=== PATIENT | male | born 1970 | race Caucasian/White ===

== ENCOUNTER 2017-01-26 02:46 | Observation (INO) | payer OTHER ==
[~2017-01-26] VITALS: Ht 172.7 cm; Wt 122.5 kg
--- NOTE | 2017-01-26 14:04 | Operative Report ---
Operative/Inv Procedure Report Surgery Date: 01/26/17 Name of Procedure: Laparoscopic hiatal hernia repair with mesh and Marva fundoplication Pre-Operative Diagnosis: Hiatal hernia with GERD Post-Operative Diagnosis: Same Estimated Blood Loss: scant Surgeon/Senior [employer] Systems Programmer: SHARON BOYCE,SKY Kat/Lori PIERCE Anesthesia: general endotracheal tube Implants: acell mesh Operative/Procedure Note Note: After consent is brought to the operating room and laid supine. Gen. anesthesia was obtained and placed in lithotomy position then his abdomen was prepped and draped. The skin in the epigastric region was after local anesthesia. Transverse incision made sharply. We came down the fascia and grasped the Ginette 's. Fasciotomies crated sharply and stay sutures placed. A blunt Moreno port was placed. Pneumoperitoneum achieved. A 5 mm port was placed in the right upper quadrant and extracted replaced with a Marisa retractor. Liver edge was lifted up and secured to the bed. 3, 5 mm ports are placed in the epigastrium and right upper quadrant after local anesthesia instilled and under direct vision the camera. He's placed in reverse Trendelenburg. The hiatus was identified. There was a large amount of fundus and omentum in the sac. Was retracted inferiorly. Began or dissection anterior and took down the peritoneum near the crura. We care dissection down to the right side than left side with Sonicision device. The visualization was quite difficult due to his obesity and intraperitoneal fat. Eventually we could circumferentially dissect the crura at the level of the sac. An umbilical tape was then placed posteriorly and tied to itself and aided in retraction. At this point we circumferentially mobilized the esophagus into the mediastinum using the Sonicision device. Care was taken to identify and preserve the vagus nerves. Once the GE junction was well below the diaphragm we excised the hernia sac with the Sonicision device to aid in better identification of the GE junction. We had at least 3-4 cm of intra- abdominal esophagus and at this point concluded that portion of the operation. Next the short gastrics were taken down with Sonicision device. At this point the GE junction and fundus were freely mobile. The diaphragmatic crura were then closed with 4 interrupted 0 Nurolon sutures. A 3 or 60 fundoplication was then created by passing the fundus posteriorly and performing a shoeshine maneuver. The fundus was then sutured to itself anteriorly with an interrupted 2-0 Vicryl. 2 more sutures were placed inferior to this first one while incorporating the anterior portion of the esophagus to keep it centered and anchored. Next a piece of biologic mesh was placed into the cavity. His cut into a horseshoe shape and placed posterior to the fundoplication along the diaphragm. Once were happy the placement of mesh we extracted the sac and then lowered liver edge. The Marisa was extracted and the ports were delivered. The fascia was closed 0 Vicryl suture. Skin incisions closed with 4-0 Vicryl. Steri-Strips and sterile dressing applied. Sponge and needle counts are correct CC: GEMINI BOYCE,BUCK
--- NOTE | 2017-01-26 14:24 | Admission Core Measures ---
Admission Meds I reviewed the following Meds: Current Medications Sig/David Start time Last Medication Dose Stop Time Status Admin Cefazolin Sodium 2,000 MG ONCE 01/26 0000 NR (Kefzol-Ancef Inj) 01/26 4979 Acute Coronary Syndrome Inclusion Criteria ACS Diagnosis No Inpatient Core Measures LDL Reminder: If No, please order W/I first 24hr of stay Congestive Heart Failure Inclusion Criteria CHF Diagnosis No Cerebrovascular accident Inclusion Criteria CVA/TIA Diagnosis No Inpatient Core Measures Bedside Swallow Eval Reminder: If BSE failed, place ST order Antithrombotic Reminder: Order Antithrombotic Medication by end of day 2 Antithrombotic Reminder: Document Reason Antithrombotic Not ordered by end of day 2 AFIB/Flutter Reminder: If Present, add to problem list AFIB/Flutter Reminder: Order Anticoag Medication for pts with AFIB/Flutter Atherosclerosis Reminder: If Present, add to problem list LDL Reminder: If No, please order W/I first 24hr of stay PT Order Reminder: If No, please order Venous thromboembolism Inpatient Core Measures VTE Risk Factors: [facility] prophylaxis d/t No contraindications No VTE Pharm Prophylaxis d/t No contraindications Inclusion Criteria - Per Current guidelines, there needs to be overlap - treatment for the first 5 days of Warfarin therapy. - Parenteral Anticoagulation (IV or SC) needs to be - given along with Warfarin therapy. VTE Diagnosis No VTE Type NONE VTE Confirmed by (Test) NONE Problem List As ranked by this Provider includes Assessment & Plan 1. Hiatal hernia
--- NOTE | 2017-01-26 15:37 | Patient Discharge Instructions ---
Discharge Instructions General Discharge Information You were seen/treated for: Hiatal hernia with GERD You had these procedures: Surgery Date: 01/26/17 Name of Procedure: Laparoscopic hiatal hernia repair with mesh and Marva fundoplication Watch for these problems: FEVER>101.3, INCREASED PAIN, REDNESS/SWELLING/DRAINAGE, DIZZINESS, SHORTNESS OF BREATH, CHEST PAINS No bath, but you may shower: Yes Other wound care: OK TO REMOVE BANDAIDS. LEAVE WHITE STERI STRIPS IN PLACE. KEEP INCISIONS CLEAN & DRY. Diet Continue normal diet: No Recommended Diet: FUNDOPLICATION DIET Activity Full Activity/No Limits: No Activity Self Limited: Yes Pounds, do NOT lift more than: 10 Other activity limits: WALK FREQUENTLY Acute Coronary Syndrome Inclusion Criteria At DC or during hospital stay patient has or had the following: ACS DIAGNOSIS No Discharge Core Measures Meds if any: Prescribed or Continued at Discharge Meds if any: NOT Prescribed or Continued at Discharge Congestive Heart Failure Inclusion Criteria At DC or during hospital stay patient has or had the following: CHF DIAGNOSIS No Discharge Core Measures Meds if any: Prescribed or Continued at Discharge Meds if any: NOT Prescribed or Continued at Discharge Cerebrovascular accident Inclusion Criteria At DC or during hospital stay patient has or had the following: CVA/TIA Diagnosis No Discharge Core Measures Meds if any: Prescribed or Continued at Discharge Meds if any: NOT Prescribed or Continued at Discharge Venous thromboembolism Inclusion Criteria VTE Diagnosis No VTE Type NONE VTE Confirmed by (Test) NONE Discharge Core Measures - Per Current guidelines, there needs to be overlap - treatment for the first 5 days of Warfarin therapy. - If discharged on Warfarin prior to 5 days of - overlap therapy, the patient will need to be - assessed for post discharge needs including - *Post discharge parental anticoagulation - *Warfarin and/or parental anticoagulation education - *Follow up date to check INR post discharge At least 5 days overlap therapy as Inpatient No Meds if any: Prescribed or Continued at Discharge Note: Overlap Therapy is Warfarin and Anticoagulant Meds if any: NOT Prescribed or Continued at Discharge
[2017-01-26] MEDS ORDERED: PERCOCET 5-3251 EACH PO (15:39)
--- NOTE | 2017-01-26 16:29 | NUR ---
PT ARRIVED TO FLOOR AT THIS TIME, ALERT ORIENTED X 3 ON RA, VSS REPORTS RIGHT SHOULDER GAS PAIN, DENIES PAIN OTHERWISE. HYPOACTIVE BS TO LUQ, OTHERWISE ABSENT, LSCTA, SKIN INTACT, 5 BANDAIDS TO ABD CD+I, ICE CHIPS AND WATER GIVEN, IVF INFUSING ORDERED, FIANCE AT BEDSIDE, C/O SMALL AMT NAUSEA, ZOFRAN GIVEN, ORIENTED TO ROOM AND USE OF CALL AVENDAÑO WILL MONITOR
[2017-01-26 16:33] VITALS: BP 160/80
--- NOTE | 2017-01-26 16:48 | PN- General Surgery ---
Subjective Subjective: Patient received on general surgical floor s/p laparoscopic hiatal hernia repair. He is having some post operative nausea but it has responded to iv zofran. He denies chest tightness and difficulty breathing. He denies nausea. He has camarena catheter in place that is set to be dc'd. He has yet to ambulate post op. Objective Vital Signs and I&Os Vital Signs Date Time Temp Pulse Resp B/P B/P Pulse O2 O2 Flow FiO2 Mean Ox Delivery Rate 01/26 1633 97.7 93 16 160/80 94 Room Air Physical Exam: General: Alert and oriented x3, no acute distress Cardiac: RRR, s1s2 Pulm: CTA bilaterally Abd: Non-tender, softly distended. Surgical incision/dressing clean dry and intact, no bowel sounds auscultated on exam. Extremities: Moves all extremities, distal sensation intact. Motor intact. Skin warm and well perfused. Bilateral calves soft and non-tender Assessment/Plan Assessment/Plan This is a 47 year old male, POD 0, s/p laparoscopic hiatal hernia repair. He has been placed in observation for iv management of pain and nausea. -IV zofran prn for nausea -IV morphine for pain if unable to tolerate po -Marva stage one diet to start as tolerated -ALPS for dvt ppx -Ambulation encouraged -Hep sub q for dvt ppx -Anticpate dc to home tomorrow if tolerating po -Will d/w Dr. Gonzalez Core Measures/Miscellaneous Venous Thromboembolism VTE Risk Factors: Age > 40, Surgery VTE Contraindications: No Contraindications VTE Diagnosis: No VTE Type: NONE VTE Confirmed by (Test): NONE Beta Liane Is Beta Liane a Home Med? No Antibiotics Is Patient on Antibiotics? Yes If Yes: prophylaxis
--- NOTE | 2017-01-26 17:32 | NUR ---
1700: DEVINE CATH REMOVED AT THIS TIME PER SURGICAL PA RAVI. IVF INFUSING, DRINKING WATER AND TAKING IN ICE CHIPS. AWAITING TO VOID. PT SITTING UP AT SIDE OF BED, STATES SOME DIZZINESS, VSS, SURGICAL PA AWARE AND AWARE OF PT'S C/O OF GAS PAIN IN THE SHOULDERS, SEE NEW ORDER FOR IV TYLENOL. WILL CONTINUE TO MONITOR.
[2017-01-26 17:53] VITALS: BP 166/90
[2017-01-26 19:59] VITALS: BP 170/100
[2017-01-26 20:25] VITALS: BP 182/110
--- NOTE | 2017-01-26 20:26 | NUR ---
BP AT THIS TIME 182/110, HR 87, DENIES CP DENIES SOB, CALL PLACED TO SURGICAL PA. AWAITING CALL BACK. PT HAS HX HTN BUT STATES HE DOES NOT TAKE BP MEDS AT HOME- NOT RX ANY.
[2017-01-26 21:31] VITALS: BP 186/100
--- NOTE | 2017-01-26 21:43 | NUR ---
CALL PLACED TO SURGICAL STAN ROJO AT THIS TIME, PT VOIDED 900 CC CLEAR YELLOW URINE. OK TO HEP LOCK AT THIS TIME. PT TAKING IN PO FLUIDS WITHOUT DIFFICULTY. PO HYDRALAZINE GIVEN ORDERED, WILL RECHECK BP IN 1 HOUR FROM NOW AND FOLLOW UP. AWAITING MEDICINE CONSULT.
--- NOTE | 2017-01-26 21:45 | NUR ---
CALL RECEIEVED FROM SURGICAL STAN ROJO AT THIS TIME AND PER DR JAMIL PT WILL BE TRANSFERRED TO TELE IN CASE PT NEEDS ANY PRESSORS IV FORM. CALL PLACED TO NIK AND NURSING SUP
--- NOTE | 2017-01-26 22:01 | NUR ---
BED PLACEMENT IN TELE IS 178, WILL CALL REPORT TO SHAYLA
--- NOTE | 2017-01-26 22:23 | NUR ---
CALL PLACED TO ARMOND ON TO GIVE REPORT AT THIS TIME. PT WILL BE GOING TO 187, NOT 178 PREVIOUSLY NOTED
--- NOTE | 2017-01-26 22:29 | NUR ---
BP AT THIS TIME 190/110, DISTRIBUTION AT BEDSIDE WITH CHARGE NURSE NIK, PLACED ON MONITOR. READY FOR TRANSPORT
[2017-01-26 22:30] VITALS: BP 190/110
--- NOTE | 2017-01-26 23:00 | NUR ---
PT ARRIVED TO ROOM 187 AT ABOUT 2240 ON 01/26/17. PT IS A/O X3. NO C/O CP OR ANY PAIN. VS 180/110, 92, 99.1, 18, 93% OZ. SURGICAL CALLED AND INFORMED OF VS. VO TO MONITOR VS FOR THE NEXT HOUR AND INFORM THEM OF ANY CHANGES. SAFTEY MAINTAINED. CALL AVENDAÑO WITHIN REACH.
--- NOTE | 2017-01-26 23:15 | Cons- Medical ---
TRENTONSANTY 01/26/17 2314: General Information and HPI Consulting Request Date of Consult: 01/26/17 Requested By: SHARON BOYCE,SKY Kat Reason for Consult: High Blood Pressure Source of Information: patient Exam Limitations: no limitations History of Present Illness: This is a 47 years old gentleman with past medical history of anxiety on Xanax when necessary, GERD and an episode of severe anemia hemoglobin as low as 5.2 during which they could not establish the cause of anemia and ended up receiving 3 units of blood in [facility]. Patient is status post arthroscopic hernia repair and we were called in to help manage his uncontrolled blood pressure. Patient denies any history of hypertension, he is not on antihypertensive medications and only medication he was on and stopped taking were anti- cholesterol medication because of muscle pain. Patient denies any precordial chest pain palpitation or shortness of breath. She has no lightheadedness or dizziness and he reports to feel totally fine. While the patient was in general med floor he received 10 mg hydralazine without any change in his blood pressure. He was transferred to telemetry floor received a dose of Lopressor 5 mg with very good blood pressure response at 152/ 90. Allergies/Medications Allergies: Coded Allergies: No Known Allergies (01/26/17) Home Med List: Amlodipine Besylate 5 MG TABLET 5 MG PO DAILY HTN Hydrocodone/Acetaminophen (Hydrocodon-Acetaminophen 5-325) 5 MG-325 MG TABLET 1-2 TAB PO Q4P PRN PAIN SCALE 1-3 (MILD) Current Medications: Current Medications Sig/David Start time Last Medication Dose Route Stop Time Status Admin Acetaminophen 1,000 MG Q6P PRN 01/26 1700 AC 01/26 N/A 1 UNIT IV 1755 Acetaminophen 650 MG Q6PRN PRN 01/26 1545 AC PO Acetaminophen 1,000 MG .STK-MED ONE 01/26 717 DC IV 01/26 07 Cefazolin Sodium 2,000 MG ONCE 01/26 0000 DC IV 01/26 2359 Dexamethasone 4 MG .STK-MED ONE 01/26 717 DC IM 01/26 0718 Dextrose/Sodium 1,000 ML .Q8H 01/26 1545 DC 01/26 Chloride IV 1755 Diphenhydramine HCl 50 MG .STK-MED ONE 01/26 1258 DC IM 01/26 1259 Fentanyl Citrate 250 MCG .STK-MED ONE 01/26 0716 DC IM 01/26 07 Heparin Sodium 5,000 UNIT Q8 01/26 2200 AC 01/26 (Porcine) SC 2044 Hydralazine HCl 10 MG ONCE ONE 01/26 2115 DC / PO 01/26 211 2140 Hydromorphone HCl 2 MG .STK-MED ONE 01/26 1523 DC IM 01/26 1524 Hydromorphone HCl 2 MG .STK-MED ONE 01/26 0926 DC IM 01/26 0927 Hydromorphone HCl 2 MG .STK-MED ONE 01/26 0715 DC IM 01/26 07 Ketorolac 30 MG .STK-MED ONE 01/26 07 DC Tromethamine IM 01/26 07 Metoprolol Tartrate 5 MG ONCE ONE 01/26 2330 DC 06/ IV 01/26 2331 2334 Midazolam HCl 2 MG .STK-MED ONE 01/26 0716 DC IM 01/26 07 Morphine Sulfate 2 MG Q2 HRS NEEDED PRN 01/26 1545 AC 01/27 IV 0104 Ondansetron HCl 4 MG Q8P PRN / 1545 AC / IV 1627 Ondansetron HCl 8 MG .STK-MED ONE 01/26 07 DC IM 01/26 0717 Oxycodone/ 1 TAB Q6P PRN / 1545 AC Acetaminophen PO Oxycodone/ 2 TAB Q6PRN PRN 06/ 1545 AC Acetaminophen PO Review of Systems Review of Systems Constitutional: Denies: chills, fever. EENTM: Denies: no symptoms. Cardiovascular: Denies: chest pain, palpitations. Respiratory: Denies: cough, short of breath. GI: Denies: abdominal pain, nausea, vomiting. Genitourinary: Denies: no symptoms. Musculoskeletal: Denies: no symptoms. All Other Systems: Reviewed and Negative Past History Medical History Blood Transfusion Hx: Yes Neurological: NONE Cardiovascular: hyperlipidemia Respiratory: NONE Gastrointestinal: NONE Hepatic: NONE Renal: NONE Musculoskeletal: NONE Psychiatric: NONE Endocrine: NONE Blood Disorders: anemia Cancer(s): NONE Surgical History Surgical History: hernia repair-inguinal Family History Relations & Conditions If Any: Relation not specified for: *No pertinent family history Psychosocial History Smoking Status: Current Everyday Smoker Exam & Diagnostic Data Last 24 Hrs of Vital Signs/I&O Vital Signs Date Time Temp Pulse Resp B/P B/P Pulse O2 O2 Flow FiO2 Mean Ox Delivery Rate 01/26 2334 88 190/110 01/26 2230 98.4 100 20 190/110 93 Room Air 01/26 2140 78 186/100 01/26 2131 77 186/100 01/26 2025 97.6 87 20 182/110 94 Room Air 01/26 1959 97.9 90 20 170/100 97 Room Air 01/26 1753 97.7 70 20 166/90 94 Room Air 01/26 1633 97.7 93 16 160/80 94 Room Air Intake & Output 01/27 0800 01/27 0000 01/26 1600 Intake Total Output Total 1250 Balance -1250 Output, Urine 1250 Patient 270 lb Weight Physical Exam General Appearance: no apparent distress, alert, awake, comfortable Head: atraumatic Ears, Nose, Throat: normal pharynx Neck: normal inspection, supple Respiratory: normal breath sounds, chest non-tender Cardiovascular: regular rate/rhythm Gastrointestinal: normal bowel sounds, soft, non-tender Last 24 Hrs of Labs/Carlos: Laboratory Tests 01/27/17 0020: Anion Gap 10, Estimated GFR > 60, BUN/Creatinine Ratio 13.8, Troponin I < 0.01, CBC w Diff NO MAN DIFF REQ, RBC 4.39 L, MCV 81.3, MCH 26.4 L, RDW 15.9 H, MPV 7.7, Gran % 80.7 H, Lymphocytes % 10.2 L, Monocytes % 8.4, Eosinophils % 0, Basophils % 0.7, Absolute Granulocytes 9.3 H, Absolute Lymphocytes 1.2, Absolute Monocytes 1.0 H, Absolute Eosinophils 0, Absolute Basophils 0.1, PUBS MCHC 32.5 L 01/26/17 1320: Sodium Cancelled, Potassium Cancelled, Chloride Cancelled, Carbon Dioxide Cancelled, Anion Gap Cancelled, BUN Cancelled, Creatinine Cancelled, BUN/ Creatinine Ratio Cancelled Diagnostic Data EKG Results Normal sinus rhythm and rate with a normal axis with left ventricular hypertrophy Assessment/Plan Assessment/Plan This is a 47 years old gentleman without previous history of hypertension presenting with very high blood pressures up to 190/110 not associated with any chest pain palpitation or shortness of breath. Patient has history of hyperlipidemia and is not on medication due to myalgia. Problem list Uncontrolled hypertension Plan Transfer the patient to telemetry floor Cardiac monitoring Patient received IV Lopressor 5 mg with good response From a.m. start amlodipine 5 mg daily Echocardiogram to assess cardiac state Spun Paste Machine Operator consult a.m. Lipid panel, troponin and EKG a.m. for trending Problem List: 1. Hypertension 2. Hyperlipidemia Consult Acknowledgment - Thank you for your consult request. OMERO BOYCE, [facility] 01/27/17 0620: Assessment/Plan Consult Acknowledgment - Thank you for your consult request. Attending MD Review Statement Attending Statement Attending MD Statement: examined this patient, discuss w/resident/PA/BIOINFORMATICS PROGRAMMER, agreed w/resident/PA/BIOINFORMATICS PROGRAMMER, discussed with family Attending Assessment/Plan: 47 yo morbidly obese M with h/o GERD, anemia of unclear etiology (negative GI work up) required PRBC and iron supplementation, hiatal hernia is now s/p repair with mesh and Marva fundoplication on January 26. Medicine being consulted for management of hypertension. Patient c/o a vague discomfort in his chest and abdomen, which he attributes to gas. He denies chest pain, dyspnea, palpitations , lightheadedness. No cardiac history. Never diagnosed with hypertension, although he does report being told that his BP is borderline high with SBP in 130-140's range. He received hydralazine PO 10 mg with no effect. Subsequently he was transferred to Telemetry, received lopressor 5 mg with good effect. EKG is SR, with LVH. Trop was negative. Monitor on Telemetry, serial EKG and troponin, obtain echo, Cardio consult. Initiate amlodipine 5 mg and uptitrate based on BP. Check TSH, free T4, HbA1c, lipid panel. ?Secondary causes of hypertension. DVT prophylaxis.
[2017-01-27 00:30] VITALS: BP 152/90
[2017-01-27 00:45] LABS: ABSOLUTE BASOPHIL COUNT 0.1 /CUMM (0.0-0.2); ABSOLUTE EOSINOPHIL COUNT 0 /CUMM (0.0-0.7); ABSOLUTE GRANULOCYTE CT 9.3 /CUMM (1.4-6.5); ABSOLUTE LYMPH COUNT 1.2 /CUMM (1.2-3.4); BASOPHIL % 0.7 % (0.0-2.0); EOSINOPHIL % 0 % (0-5); GRANULOCYTE % 80.7 % (42.2-75.2); HEMATOCRIT 35.7 % (42-52); MEAN CORPUSCULAR HGB 26.4 PG (27.0-31.0); MEAN CORPUSCULAR HGB CONC 32.5 G/DL (33.0-37.0); MEAN CORPUSCULAR VOLUME 81.3 FL (80.0-94.0); MEAN PLATELET VOLUME 7.7 FL (7.4-10.4); PLATELET COUNT 330 /CUMM (130-400); RBC DISTRIBUTION WIDTH 15.9 % (11.5-14.5); RED BLOOD CELL CT 4.39 /CUMM (4.70-6.10); WHITE BLOOD CELL COUNT 11.5 /CUMM (4.8-10.8)
--- NOTE | 2017-01-27 07:37 | PN- Medicine Consult ---
[facility] 01/27/17 0728: Assessment/Plan Assessment/Plan Assessment: 47 yo morbidly obese M with h/o GERD, anemia of unclear etiology (negative GI work up) required PRBC and iron supplementation, hiatal hernia is s/p repair with mesh and Marva fundoplication on January 26. Medicine was consulted for management of hypertension. Plan: * He received hydralazine PO 10 mg with no effect. Subsequently he was transferred to Telemetry, received lopressor 5 mg with good effect * Blood pressure well controlled at 152/90 now. Has been started on amlodipine 5 mg. Can be titrated up as needed. * EKG is NSR, with LVH. Trop x1 was negative. * Lipid panel and thyroid functions pending. * Cardiology consult * Pain control by primary team * DVT prophylaxis subcutaneous heparin Problem List: 1. Hiatal hernia 2. Hypertension Subjective Subjective: Patient is doing better. He received IV metoprolol overnight with improvement in his blood pressure. Blood pressure this morning is 154/90. Patient denies any chest discomfort, palpitations, nausea, vomiting, abdominal pain. Abdominal dressings appear clean and intact. Has been ambulating well. No bowel movement till now. Review of Systems Constitutional: Reports: no symptoms. EENTM: Reports: no symptoms. Cardiovascular: Reports: no symptoms. Respiratory: Reports: no symptoms. Gastrointestinal: Reports: abdominal pain (AT THE SITE OF INCISIONS). Genitourinary: Reports: no symptoms. Musculoskeletal: Reports: no symptoms. Skin: Reports: no symptoms. Neurological/Psychological: Reports: no symptoms. Objective Last 24 Hrs of Vital Signs/I&O Vital Signs Date Time Temp Pulse Resp B/P B/P Pulse O2 O2 Flow FiO2 Mean Ox Delivery Rate 01/27 0030 84 152/90 / 2334 88 190/110 / 2230 98.4 100 20 190/110 93 Room Air / 2140 78 186/100 / 2131 77 186/100 01/26 2025 97.6 87 20 182/110 94 Room Air 01/26 1959 97.9 90 20 170/100 97 Room Air 01/26 1753 97.7 70 20 166/90 94 Room Air 01/26 1633 97.7 93 16 160/80 94 Room Air Intake & Output 01/27 0800 06/08 0000 06/07 1600 Intake Total 600 Output Total 450 1250 Balance 150 -1250 Intake, Oral 600 Output, Urine 450 1250 Patient 122.47 kg Weight Physical Exam General Appearance: no apparent distress, alert, awake, comfortable, obese Head: atraumatic, normal appearance Ears, Nose, Throat: normal pharynx Neck: normal inspection Cardiovascular: regular rate/rhythm Respiratory: normal breath sounds, quiet respiration, lungs clear Abdomen: normal bowel sounds, DRESSINGS CLEAN AND INTACT Back: normal inspection Extremities: normal inspection Skin: intact, normal color Current Medications: Current Medications Sig/David Start time Last Medication Dose Route Stop Time Status Admin Acetaminophen 1,000 MG Q6P PRN 01/26 1700 AC 01/26 N/A 1 UNIT IV 1755 Acetaminophen 650 MG Q6PRN PRN 01/26 1545 AC PO Amlodipine Besylate 5 MG DAILY 01/27 1000 AC PO Cefazolin Sodium 2,000 MG ONCE 01/26 0000 DC IV 01/26 2359 Dextrose/Sodium 1,000 ML .Q8H 01/26 1545 DC 01/26 Chloride IV 1755 Diphenhydramine HCl 50 MG .STK-MED ONE 01/26 1258 DC IM 01/26 1259 Heparin Sodium 5,000 UNIT Q8 01/26 2200 AC 01/27 (Porcine) SC 0549 Hydralazine HCl 10 MG ONCE ONE 01/26 2115 DC / PO 01/26 211 2140 Hydromorphone HCl 2 MG .STK-MED ONE 01/26 1523 DC IM 01/26 1524 Hydromorphone HCl 2 MG .STK-MED ONE 01/26 0926 DC IM 01/26 0927 Metoprolol Tartrate 5 MG ONCE ONE 01/26 2330 DC / IV 01/26 2331 2334 Morphine Sulfate 2 MG Q2 HRS NEEDED PRN 01/26 1545 AC 01/27 IV 0420 Ondansetron HCl 4 MG Q8P PRN 01/26 1545 AC 01/26 IV 1627 Oxycodone/ 1 TAB Q6P PRN 01/26 1545 AC Acetaminophen PO Oxycodone/ 2 TAB Q6PRN PRN / 1545 AC Acetaminophen PO Results Last 24 Hrs Lab/Carlos Results: Laboratory Tests 01/27/17 0655: Sodium Pending, Potassium Pending, Chloride Pending, Carbon Dioxide Pending, Anion Gap Pending, BUN Pending, Creatinine Pending, BUN/Creatinine Ratio Pending , Troponin I Pending, Triglycerides Pending, Cholesterol Pending, LDL Cholesterol, Calc Pending, HDL Cholesterol Pending, Cholesterol/HDL Ratio Pending 01/27/17 0020: Anion Gap 10, Estimated GFR > 60, BUN/Creatinine Ratio 13.8, Hemoglobin A1c Pending, Troponin I < 0.01, CBC w Diff NO MAN DIFF REQ, RBC 4.39 L, MCV 81.3, MCH 26.4 L, RDW 15.9 H, MPV 7.7, Gran % 80.7 H, Lymphocytes % 10.2 L, Monocytes % 8.4, Eosinophils % 0, Basophils % 0.7, Absolute Granulocytes 9.3 H, Absolute Lymphocytes 1.2, Absolute Monocytes 1.0 H, Absolute Eosinophils 0, Absolute Basophils 0.1, PUBS MCHC 32.5 L 01/26/17 1320: Sodium Cancelled, Potassium Cancelled, Chloride Cancelled, Carbon Dioxide Cancelled, Anion Gap Cancelled, BUN Cancelled, Creatinine Cancelled, BUN/ Creatinine Ratio Cancelled Microbiology 01/27 812 URINE ROUT: Urine Culture - RECD SIN SMITH 01/27/17 1419: Attending MD Review Statement Attending Sign Off Attending Cosign Statement: I have: examined this patient, [facility], personally reviewd images, discussd w/resident/PA/CAR PAINTER, discussed mgmt plan w/india, discussed mgmt plan w/CM, discussed mgmt plan w/pt, agreed w/resident/PA/CAR PAINTER. Other Findings: "47 yo morbidly obese M with h/o GERD, anemia of unclear etiology (negative GI work up) required PRBC and iron supplementation, hiatal hernia is now s/p repair with mesh and Marva fundoplication on January 26. Medicine being consulted for management of hypertension. EKG is SR, with LVH. Trop was negative. " Monitor on Telemetry, serial EKG and troponin NEGATIVE, f/u ECHO, BP better controlled. cont current care.
[2017-01-27 09:03] VITALS: BP 158/98
--- NOTE | 2017-01-27 11:47 | PN- General Surgery ---
Subjective Subjective: Patient with mild to moderate epigastric pain, no nausea no vomiting, no fever or flulike illness, no shortness of breath No flatus no bowel movement, tolerating stage I diet Objective Vital Signs and I&Os Vital Signs Date Time Temp Pulse Resp B/P B/P Pulse O2 O2 Flow FiO2 Mean Ox Delivery Rate 01/27 0918 95 158/98 / 0903 99.1 95 20 158/98 95 Room Air 01/27 0030 84 152/90 01/26 2334 88 190/110 01/26 2230 98.4 100 20 190/110 93 Room Air 01/26 2140 78 186/100 01/26 2131 77 186/100 / 2025 97.6 87 20 182/110 94 Room Air 01/26 1959 97.9 90 20 170/100 97 Room Air 01/26 1753 97.7 70 20 166/90 94 Room Air 01/26 1633 97.7 93 16 160/80 94 Room Air Intake & Output 01/27 1600 01/27 0800 01/27 0000 01/26 1600 01/26 0800 01/26 0000 Intake Total 600 Output Total 450 1250 Balance 150 -1250 Intake, Oral 600 Output, Urine 450 1250 Patient 270 lb Weight Physical Exam: Well-developed well-nourished no apparent distress. HEENT: Atraumatic, extraocular motion intact Neck: Supple, no lymphadenopathy Respiratory: No respiratory distress, lungs clear with minimal scattered crackles noted at bases Heart: Regular rate and rhythm Abdomen: Obese, minimally distended, soft, dressings clean dry and intact, mild swelling at the midportion incision with mild tenderness. No erythema. No discharge from the wounds. Bowel sounds are present however hypoactive Extremities: No edema, no calf pain Neuro: Alert and oriented x3 Psych: Mood affect normal, normal memory normal judgment. Skin: Warm and dry, no rash on exposed skin Results Last 48 Hours of Labs: Laboratory Tests 01/27 01/27 01/26 0655 0020 1320 Chemistry Sodium (137 - 145 mmol/L) 137 139 Cancelled Potassium (3.5 - 5.1 mmol/L) 3.9 4.5 Cancelled Chloride (98 - 107 mmol/L) 102 102 Cancelled Carbon Dioxide (22 - 30 mmol/L) 26 27 Cancelled Anion Gap (5 - 16) 9 10 Cancelled BUN (9 - 20 mg/dL) 10 11 Cancelled Creatinine (0.7 - 1.2 mg/dL) 0.7 0.8 Cancelled Estimated GFR (>60 ml/min) > 60 > 60 BUN/Creatinine Ratio (7 - 25 %) 14.3 13.8 Cancelled Hemoglobin A1c (4.2 - 5.8 %) 6.0 H Troponin I (<0.11 ng/ml) < 0.01 < 0.01 Triglycerides (<150 mg/dL) 123 Cholesterol (< 200 MG/DL) 209 H LDL Cholesterol, Calc (65 - 129 mg/dL) 118 HDL Cholesterol (40 - 60 mg/dL) 67 H Cholesterol/HDL Ratio (0.00 - 4.88 %) 3 TSH (0.270 - 4.200 uIU/mL) 0.252 L Free T4 (0.64 - 1.79 ng/dL) 1.84 H Thyroxine (T4) (4.5 - 10.9 ug/dL) 12.6 H Total T3 (0.97 - 1.69 ng/mL) 1.33 Hematology CBC w Diff NO MAN DIFF REQ WBC (4.8 - 10.8 /CUMM) 11.5 H RBC (4.70 - 6.10 /CUMM) 4.39 L Hgb (14.0 - 18.0 G/DL) 11.6 L Hct (42 - 52 %) 35.7 L MCV (80.0 - 94.0 FL) 81.3 MCH (27.0 - 31.0 PG) 26.4 L RDW (11.5 - 14.5 %) 15.9 H Plt Count (130 - 400 /CUMM) 330 MPV (7.4 - 10.4 FL) 7.7 Gran % (42.2 - 75.2 %) 80.7 H Lymphocytes % (20.5 - 51.1 %) 10.2 L Monocytes % (1.7 - 9.3 %) 8.4 Eosinophils % (0 - 5 %) 0 Basophils % (0.0 - 2.0 %) 0.7 Absolute Granulocytes (1.4 - 6.5 /CUMM) 9.3 H Absolute Lymphocytes (1.2 - 3.4 /CUMM) 1.2 Absolute Monocytes (0.10 - 0.60 /CUMM) 1.0 H Absolute Eosinophils (0.0 - 0.7 /CUMM) 0 Absolute Basophils (0.0 - 0.2 /CUMM) 0.1 PUBS MCHC (33.0 - 37.0 G/DL) 32.5 L Assessment/Plan Assessment/Plan This is a 47 year old male, POD 1, s/p laparoscopic hiatal hernia repair. Currently still in observation status, postop course, complicated by hypertension, cardiology consult pending, appreciate medical input. -By mouth Zofran when necessary nausea -Switched to Vicodin for pain -Marva stage one diet as tolerated -ALPS for dvt ppx heparin subcutaneous for DVT prophylaxis -Await return of bowel function -Hypertension better controlled with Norvasc by mouth, await cardiology evaluation and echocardiogram -Nutrition consult -likely discharge planning on hold until tomorrow -Will d/w Dr. Gonzalez Core Measures/Miscellaneous Venous Thromboembolism VTE Risk Factors: Age > 40, Surgery VTE Contraindications: No Contraindications VTE Diagnosis: No VTE Type: NONE VTE Confirmed by (Test): NONE Beta Liane Is Beta Liane a Home Med? No Antibiotics Is Patient on Antibiotics? Yes If Yes: prophylaxis
[2017-01-27 14:35] VITALS: BP 140/92
[2017-01-27] MEDS ORDERED: AMLODIPINE BESYL5 M1 PO (14:35)
--- NOTE | 2017-01-27 14:42 | PN- General Surgery ---
Surgical Brief Attending Note Brief Attending Note: Patient doing well. acute post op hypertension is common. Chest pain secondary to diaphragmatic surgery without evidence for OK. Ok for d/c home with outpatient workup of hypertention .
[2017-01-27] MEDS ORDERED: HYDROCODON-ACE1 EAC2 PO (14:54)
== END 2017-01-27 15:15 ==
LOC: STS 02:46 → PACUH 12:45 → 1NO 12:45 → PACUH 12:45 → ENRESERV 13:46 → ENTRNSPT 15:43 → 2NA 16:04 → CMPTRNSPT 16:16 → DELTRNSPT 16:27 → 2NA 17:12 → 1NO 22:36 → ENPENDDIS 01-27 14:34 → 1NO 01-27 15:15
PROVIDERS: Preventive Medicine Public Health & General Preventive Medicine; ADMIT Surgery
DX: K44.9 Diaphragmatic hernia without obstruction or gangrene (principal); K21.9 Gastro-esophageal reflux disease without esophagitis; I97.3 Postprocedural hypertension; Y83.9 Surgical procedure, unspecified as the cause of abnormal reaction of the patient, or of later complication, without mention of misadventure at the time of the procedure; Y92.530 Ambulatory surgery center as the place of occurrence of the external cause
CPT/HCPCS: 6020; 82436; 87086; 93005; 93010; 96372; 96374; 96375; 96376; G0378; J0131; J0690; J1100; J1200; J1644; J2405; J7042; Q4119

== ENCOUNTER → 2018-02-01 | Day surgery (SDC) | payer OTHER ==
[~2018-02-01] VITALS: Ht 172.7 cm; Wt 121.6 kg
[~2018-02-01] MED LIST: AMLODIPINE BESYL5 M1 PO; HYDROCODON-ACE1 EAC2 PO; PERCOCET 5-3251 EACH PO
--- NOTE | 2018-02-01 11:13 | Operative Report ---
Operative/Inv Procedure Report Surgery Date: 02/01/18 Name of Procedure: Robotic assisted laparoscopic incisional hernia repair with mesh Pre-Operative Diagnosis: Incisional hernia Post-Operative Diagnosis: Same Estimated Blood Loss: scant Surgeon/Broke Worker: Carlos BOYCE,Kvng Kat/Juan Daniel PIERCE Anesthesia: general endotracheal tube Implants: 7 x 15 cm parieTex Pro automatic hemmer Operative/Procedure Note Note: After consent patient brought to the operating room laid supine. General anesthesia was obtained and his abdomen was prepped and draped. Skin left upper quadrant was able to local anesthesia and incision made sharply. Access to the peritoneum was gained percutaneously using an optical trocar, 8 mm. Pneumoperitoneum was achieved. The abdomen was explored. There is no bowel injury. 2, 8 mm ports were then placed in the left lower quadrant under direct vision a camera. The robot was docked and targeted. I then broke scrub and went to the console. There were 3 separate fascial defects all in the midline. Superior one was through the falciform ligament near the laparoscopic port site incisional hernia. There were 2 other periumbilical fascial defects. We began by taking down a flap of peritoneum medially using scissor cautery. We then developed a plane in the preperitoneum with cautery. Hernia defects were delivered of fatty incarcerated tissue. The epigastric wound was the largest measuring 2 cm in greatest dimension. The periumbilical defects were 1.5 and 1 cm. Once an adequate peritoneal flap was created, we then closed the defects. This was accomplished with a running 0 V lock absorbable suture. All defects were closed in the midline and the intervening fascia imbricated. The distance between all the defects was about 12-13 cm. It shows a 9 x 15 cm pariah Ilir Pro automatic hemmer. It was trimmed to 7 x 15 cm as that was the limit of our preperitoneal dissection. It was then rolled up and placed in the peritoneal cavity. The pro -automatic hemmer was adhered to the abdominal wall and unraveled to cover all the defects. There was approximately 3 cm of coverage around all of them. The mesh was then anchored in a few gifford spots with interrupted 2-0 Vicryl sutures. The peritoneal flap was then closed over the mesh with a running 2-0 V lock absorbable suture. Sutures are extracted and passed off the field. The robot was then undocked and ports extracted. Sponge and needle counts are correct. CC: Katie BOYCE,Zay
== END ==
LOC: STS 01:57
DX: K43.0 Incisional hernia with obstruction, without gangrene (principal); I10 Essential (primary) hypertension; K21.9 Gastro-esophageal reflux disease without esophagitis; F17.200 Nicotine dependence, unspecified, uncomplicated
CPT/HCPCS: 36415; 93005; 93010; C1781; J0131; J0690; J1630; J1720; J2250; J2405; J3490